=== PATIENT | female | born 1950 | race Caucasian/White ===

== ENCOUNTER 2020-05-15 16:26 | Inpatient (IN) | payer MEDICARE, OTHER ==
[~2020-05-15] VITALS: Ht 170.2 cm; Wt 113.6 kg
[~2020-05-15 16:26] MED LIST: ALBU8.5H8 INH; ATEN25TA PO; CBD PO; CYCL-1 PO; HORMONE TOP; HORMONE VG; HYDR-4384 PO; VAL5T PO; VENL-191 PO; [UNRECOGNIZED DRUG - OTHER] PO
[2020-05-15] MEDS ORDERED: oxyCODONE IR 5mg (immed. release) tablet PO ONE (17:50)
--- NOTE | 2020-05-15 18:55 | NUR ---
Pt with hr sustained between 122-145. and afib. pt reports no hx of this. stat ekg ordered and s sarthak updated.
[2020-05-15 18:59] LABS: BASOPHILS # (AUTO) 0.1 X10'3 (0-0.2); BASOPHILS % (AUTO) 1.2 % (0-1); EOSINOPHILS # (AUTO) 0.3 X10'3 (0-0.9); EOSINOPHILS % (AUTO) 3.4 % (0-6); HEMATOCRIT 41.2 % (35.0-45.0); HEMOGLOBIN 13.8 g/dl (12.0-16.0); LYMPHOCYTES # (AUTO) 1.5 X10'3 (1.1-4.8); LYMPHOCYTES % (AUTO) 19.9 % (21-51); MEAN CORPUSCULAR HGB CONC 33.4 g/dL (33.0-36.5); MEAN CORPUSCULAR VOLUME 95.8 FL (78-98); MEAN PLATELET VOLUME 7.8 FL (7.4-10.4); MONOCYTES # (AUTO) 0.8 X10'3 (0-0.9); MONOCYTES % (AUTO) 10.3 % (2-12); NEUTROPHILS # (AUTO) 4.9 X10'3 (1.8-7.7); NEUTROPHILS % (AUTO) 65.2 % (42-75); PLATELET COUNT 309 X10'3 (140-440); RED CELL DISTRIBUTION WIDTH 13.2 % (11.5-14.5); WHITE BLOOD COUNT 7.4 X10'3 (4.5-11.0)
[2020-05-15 19:13] LABS: ALANINE AMINOTRANSFERASE 29 U/L (12-78); ALBUMIN 3.5 G/DL (3.4-5.0); ALKALINE PHOSPHATASE 125 IU/L (46-116); ANION GAP 6 (8-16); ASPARTATE AMINO TRANSFERASE 26 U/L (10-37); BILIRUBIN,TOTAL 0.5 MG/DL (0.1-1.0); BLOOD UREA NITROGEN 10 MG/DL (7-18); BUN/CREATININE RATIO 13.9 (6.6-38.0); CALCIUM 8.7 MG/DL (8.5-10.1); CHLORIDE 106 MMOL/L (99-107); CREATININE 0.72 MG/DL (0.40-0.90); GLUCOSE 100 MG/DL (70-104); POTASSIUM 4.2 MMOL/L (3.5-5.1); SODIUM 140 MMOL/L (135-145); TOTAL CARBON DIOXIDE 27.8 MMOL/L (24-32); TOTAL PROTEIN 7.1 G/DL (6.4-8.2); eGFR 81 ML/MIN
[2020-05-15] MEDS ORDERED: diltiazem-D5W 125mg/125ml 125 ML IV ONE (19:13)
[2020-05-15] MEDS ORDERED: diltiazem 5mg/ml 5ml inj. IV ONE (19:15)
--- NOTE | 2020-05-15 19:17 | NUR ---
daryl de león and dr. jefferson at bedside for eval d/t suspected new onset of afib rvr. pt now to be admitted and providers talking with her. states she was evaluated by dr. almaraz 1 month ago and had ekg and stress test for pre op and was told of no abnormalities she ca recall. states she has not bee feelig well since the surgery. guillaume de león now talking with dr. patel about pt.
[2020-05-15] MEDS ORDERED: OXYC10TA47 PO (19:29)
--- NOTE | 2020-05-15 19:56 | NUR ---
DR FELTON AT BEDSIDE FOR ADMISSION.
--- NOTE | 2020-05-15 19:57 | NUR ---
GIVEN CARDIZEIM IV PUSH 10 MD, HR NOW AFIB AVG 110 MIN. AWAITING CARDIZIEM GTT FROM PHARMACY
[2020-05-15] MEDS ORDERED: diltiazem-NS 100mg/100ml 100 ML IV ONE (20:00)
[2020-05-15] MEDS ORDERED: iohexol 350MG/ML 100ml bottle IV ONE (20:43)
[2020-05-15] MEDS ORDERED: normal saline 1000ml 1,000 ML IV SCH (21:02)
--- NOTE | 2020-05-15 21:02 | NUR ---
TAKEN TO CT FOR CT W/CONTRAST OF CHEST.
[2020-05-15] MEDS ORDERED: potassium Cl 20 mEq SR tablet PO PRN (21:05)
[2020-05-15] MEDS ORDERED: potassium CL 10mEq/100ml bag 100 ML IV PRN ×2 (21:05)
[2020-05-15] MEDS ORDERED: ondansetron/PF 4mg/2ml inj IV PRN (21:05)
[2020-05-15] MEDS ORDERED: HYDROcodone/acetaminophen 10/325mg tab PO PRN (21:05)
[2020-05-15] MEDS ORDERED: morphine 2 MG/ML inj. syringe IV PRN (21:05)
[2020-05-15] MEDS ORDERED: acetaminophen 325mg tablet PO PRN (21:05)
[2020-05-15] MEDS ORDERED: magnesium hydroxide 30ml (MOM) UD suspension PO PRN (21:05)
[2020-05-15] MEDS ORDERED: mag hydrox/Alum hydrox/simeth 30ml oral suspension PO PRN (21:05)
[2020-05-15] MEDS ORDERED: HYDROcodone/acetaminophen 5mg/325mg tablet PO PRN (21:05)
[2020-05-15] MEDS ORDERED: albuterol 2.5 MG/3 ML nebule NEB PRN (21:10)
[2020-05-15] MEDS ORDERED: diazepam 5mg tablet PO PRN (21:10)
[2020-05-15] MEDS: oxyCODONE IR 5mg (immed. release) tablet PO PRN (21:37)
[2020-05-15] MEDS: cyclobenzaprine 10mg tablet PO PRN (21:46)
[2020-05-15 22:25] VITALS: BP 126/46
[2020-05-15] MEDS: enoxaparin 100mg/ml syringe SUBCUT SCH (22:45)
[2020-05-16] VITALS (12 sets, daily range): BP systolic 112–155; BP diastolic 53–88
[2020-05-16] MEDS: morphine 2 MG/ML inj. syringe IV PRN ×4 (00:32→23:32)
[2020-05-16] MEDS: oxyCODONE IR 5mg (immed. release) tablet PO PRN ×4 (04:22→20:36)
--- NOTE | 2020-05-16 05:13 | NUR ---
Spoke with Tomer Souza at 0511 regarding pt's HR which has jumped up to the 130's and maintaing in the 110's. Dr ordered to increase the cardizem drip to 7.5 mg.
[2020-05-16 06:10] LABS: BASOPHILS % (AUTO) 0.8 % (0-1); EOSINOPHILS # (AUTO) 0.2 X10'3 (0-0.9); EOSINOPHILS % (AUTO) 3.8 % (0-6); HEMATOCRIT 39.2 % (35.0-45.0); HEMOGLOBIN 13.3 g/dl (12.0-16.0); LYMPHOCYTES % (AUTO) 33.6 % (21-51); MEAN CORPUSCULAR HEMOGLOBIN 32.5 PG (27.0-31.0); MEAN CORPUSCULAR HGB CONC 33.9 g/dL (33.0-36.5); MEAN PLATELET VOLUME 8.7 FL (7.4-10.4); MONOCYTES # (AUTO) 0.6 X10'3 (0-0.9); MONOCYTES % (AUTO) 10.7 % (2-12); NEUTROPHILS # (AUTO) 3.1 X10'3 (1.8-7.7); NEUTROPHILS % (AUTO) 51.1 % (42-75); PLATELET COUNT 282 X10'3 (140-440); RED BLOOD COUNT 4.08 X10'6 (4.20-5.60); RED CELL DISTRIBUTION WIDTH 13.4 % (11.5-14.5)
[2020-05-16 06:21] LABS: ALANINE AMINOTRANSFERASE 25 U/L (12-78); ALBUMIN 3.2 G/DL (3.4-5.0); ANION GAP 9 (8-16); ASPARTATE AMINO TRANSFERASE 23 U/L (10-37); BILIRUBIN,TOTAL 0.5 MG/DL (0.1-1.0); BLOOD UREA NITROGEN 7 MG/DL (7-18); BUN/CREATININE RATIO 10.4 (6.6-38.0); CHLORIDE 107 MMOL/L (99-107); CREATININE 0.67 MG/DL (0.40-0.90); GLUCOSE 106 MG/DL (70-104); POTASSIUM 3.3 MMOL/L (3.5-5.1); SODIUM 141 MMOL/L (135-145); TOTAL PROTEIN 6.5 G/DL (6.4-8.2); eGFR 88 ML/MIN
--- NOTE | 2020-05-16 06:30 | NUR ---
Patient in room MED 311. I have received report from Khadijah BOX and had the opportunity to ask questions and assume patient care.
--- NOTE | 2020-05-16 06:31 | NUR ---
Problems reprioritized. Patient report given, questions answered & plan of care reviewed with Ruthie BOX.
[2020-05-16 07:05] LABS: ALKALINE PHOSPHATASE 102 IU/L (46-116)
[2020-05-16] MEDS: K and/or MAG REPLACEMENT MC SCH ×2 (08:00→20:00)
[2020-05-16] MEDS: venlafaxine 37.5mg tablet PO SCH ×2 (09:00→20:37)
[2020-05-16] MEDS: enoxaparin 100mg/ml syringe SUBCUT SCH ×2 (09:01→19:02)
[2020-05-16] MEDS: diltiazem 30mg tablet PO SCH ×3 (11:02→19:01)
[2020-05-16] MEDS: potassium Cl 20 mEq SR tablet PO PRN ×3 (11:29→22:00)
--- NOTE | 2020-05-16 12:19 | NUR ---
Patient was given Oxy IR at 0900 and it did not relive her pain now it is back to an 8 (L shoulder). She refused Talpa and stated IV MS had finally worked for her to get some rest last night. She states she has not really slept due to the pain.
--- NOTE | 2020-05-16 18:00 | NUR ---
Patient in room PCU 3014. I have received report from Ruthie BOX and had the opportunity to ask questions and assume patient care.
--- NOTE | 2020-05-16 18:29 | NUR ---
Problems reprioritized. Patient report given, questions answered & plan of care reviewed with Lori BOX.
[2020-05-16] MEDS: cyclobenzaprine 10mg tablet PO PRN (20:36)
[2020-05-16] MEDS ORDERED: atenolol 25mg tablet PO SCH (21:00)
[2020-05-17] MEDS: diltiazem 30mg tablet PO SCH ×2 (02:06→07:11)
[2020-05-17] MEDS: oxyCODONE IR 5mg (immed. release) tablet PO PRN ×2 (03:39→12:24)
[2020-05-17 05:50] LABS: ALANINE AMINOTRANSFERASE 25 U/L (12-78); ALBUMIN/GLOBULIN RATIO 0.9 (1.1-1.5); ALKALINE PHOSPHATASE 113 IU/L (46-116); ANION GAP 7 (8-16); ASPARTATE AMINO TRANSFERASE 22 U/L (10-37); BILIRUBIN,TOTAL 0.4 MG/DL (0.1-1.0); BLOOD UREA NITROGEN 8 MG/DL (7-18); BUN/CREATININE RATIO 10.7 (6.6-38.0); CALCIUM 8.5 MG/DL (8.5-10.1); CHLORIDE 106 MMOL/L (99-107); CREATININE 0.75 MG/DL (0.40-0.90); GLUCOSE 95 MG/DL (70-104); POTASSIUM 3.9 MMOL/L (3.5-5.1); SODIUM 140 MMOL/L (135-145); TOTAL PROTEIN 6.2 G/DL (6.4-8.2); eGFR 77 ML/MIN
[2020-05-17 06:00] VITALS: BP 106/63
[2020-05-17 06:03] LABS: BASOPHILS # (AUTO) 0.1 X10'3 (0-0.2); BASOPHILS % (AUTO) 1.3 % (0-1); EOSINOPHILS # (AUTO) 0.2 X10'3 (0-0.9); EOSINOPHILS % (AUTO) 4.8 % (0-6); HEMATOCRIT 39.3 % (35.0-45.0); HEMOGLOBIN 13.1 g/dl (12.0-16.0); LYMPHOCYTES # (AUTO) 1.5 X10'3 (1.1-4.8); LYMPHOCYTES % (AUTO) 29.6 % (21-51); MEAN CORPUSCULAR HEMOGLOBIN 32.1 PG (27.0-31.0); MEAN CORPUSCULAR HGB CONC 33.4 g/dL (33.0-36.5); MEAN CORPUSCULAR VOLUME 96.3 FL (78-98); MEAN PLATELET VOLUME 8.7 FL (7.4-10.4); MONOCYTES # (AUTO) 0.6 X10'3 (0-0.9); MONOCYTES % (AUTO) 11.7 % (2-12); NEUTROPHILS # (AUTO) 2.7 X10'3 (1.8-7.7); NEUTROPHILS % (AUTO) 52.6 % (42-75); PLATELET COUNT 262 X10'3 (140-440); RED BLOOD COUNT 4.08 X10'6 (4.20-5.60); RED CELL DISTRIBUTION WIDTH 13.7 % (11.5-14.5); WHITE BLOOD COUNT 5.1 X10'3 (4.5-11.0)
--- NOTE | 2020-05-17 06:25 | NUR ---
Problems reprioritized. Patient report given, questions answered & plan of care reviewed with Cristin BOX.
[2020-05-17] MEDS: venlafaxine 37.5mg tablet PO SCH (07:10)
[2020-05-17] MEDS: enoxaparin 100mg/ml syringe SUBCUT SCH (07:11)
[2020-05-17] MEDS: K and/or MAG REPLACEMENT MC SCH (07:20)
[2020-05-17 11:00] VITALS: BP 142/66
[2020-05-17] MEDS ORDERED: DILT-94 PO (12:09)
[2020-05-17] MEDS ORDERED: APIX5TAB3 PO (12:10)
[2020-05-17] MEDS: cyclobenzaprine 10mg tablet PO PRN (12:21)
--- NOTE | 2020-05-17 14:05 | NUR ---
patient stable for discharge per MD orders. All discharge instructions reviewed with patient and all questions answered; including information regarding Elaquis and emergent signs and symptoms of trauma to head, ICH, and strict return precautions. New prescriptions were e-scripted to [facility]. Patient medications retrieved from pharmacy. PIV discontinued with cannula intact. equipment monitor phototypesetting discontinued. Belongings Collected and sent with patient. Patient wheel to the lobby assisted by JOY Nayak. Cut patient armbands at the time of discharge. Patel picked patient up at lobby exit and was seen leaving the premises.
--- NOTE | 2020-05-20 09:38 | NUR ---
Case Management DC follow up: spoke to pt via telephone. s/p: afib w/RVR, L shoulder pain r/t FALL, recent shoulder surgery, which is what brought pt to ER, to find out she was in afib as well. Pt states very happy with the care received. Reports:"still have some SOB, dizziness". Pt awaiting call back from Dr Tomas office for follow up. Denies: acute/continuous CP, emergent SOB, resp distress, N/V, BLACKBURN, blurry vision, vertigo, syncope episodes, weakness,emergent general pain, abd tenderness/distension, bladder pain, dysuria, polyuria, hematuria, retention, constipation, diarrhea, fever, unexplained bleeding, bruising. Pt states she did have some N/V a few days ago, chest pressure. Verbalizes understanding of s/s that warrant 9-/ER visit for further evaluation. Verbalizes understanding of new Rx: dilitiazem. Eliquis also prescribed, pt cannot afford. pt agrees to contact Dr Tomas office and PCP/Rose about alternative medication comparable to the Eliquis. pt verbalizes understanding of why prescribed, resumes current Rx, taking as ordered, no ase r/t polypharmacy. HSS/MHCP assigned to pt. Verbalizes compliance w/DC aftercare. Needs met, questions answered at DC, no further questions or concerns at this time.
== END 2020-05-17 14:05 | disposition home health service (06) | DRG 310 ==
LOC: ER 16:26 → ED HOLD 21:02 → UNDOADMIN 21:02 → MED 3N 22:10 → ED HOLD 22:10 → PCU 3S 05-16 17:58
PROVIDERS: ADMIT Internal Medicine; ATTEND Internal Medicine
PROC: B32T1ZZ Computerized Tomography (CT Scan) of Left Pulmonary Artery using Low Osmolar Contrast (ICD-10-PCS; principal; 2020-05-15)
PROC: B3201ZZ Computerized Tomography (CT Scan) of Thoracic Aorta using Low Osmolar Contrast (ICD-10-PCS; 2020-05-15)
PROC: B32S1ZZ Computerized Tomography (CT Scan) of Right Pulmonary Artery using Low Osmolar Contrast (ICD-10-PCS; 2020-05-15)
DX: I48.91 Unspecified atrial fibrillation (principal); J45.909 Unspecified asthma, uncomplicated; M19.012 Primary osteoarthritis, left shoulder; Z88.1 Allergy status to other antibiotic agents; M17.12 Unilateral primary osteoarthritis, left knee; M19.011 Primary osteoarthritis, right shoulder; F41.9 Anxiety disorder, unspecified; F32.9 Major depressive disorder, single episode, unspecified; Z96.619 Presence of unspecified artificial shoulder joint; W18.39XA Other fall on same level, initial encounter; Y93.89 Activity, other specified; Y92.091 Bathroom in other non-institutional residence as the place of occurrence of the external cause; Y99.8 Other external cause status
CPT/HCPCS: 36415; 71275; 73030; 80053; 85025; 87081; 93306; 94760; 97161; 97530; 99285; G0378; J1650; J2270; J3490; J7030; Q9967